=== PATIENT | male | born 1970 | race African-American/Black ===

== ENCOUNTER 2016-07-03 11:58 | Emergency (ER) | payer BC, SELFPAY ==
[2016-07-03] MEDS ORDERED: Ketorolac Tromethamine 30 MG/ML VIAL ONE (13:03)
[2016-07-03] MEDS ORDERED: Ondansetron HCl/PF 4 MG/2 ML Vial ONE (13:03)
[2016-07-03 13:32] LABS: #Basophils 0.1 thou/uL (0.0-0.2); #Lymphocytes 1.2 thou/uL (1.20-3.40); #Monocytes 0.8 thou/uL (0.11-0.59); #Neutrophils 9.8 thou/uL (1.40-6.50); %Basophils 1.2 % (0.0-1.0); %Eosinophils 0.1 % (0.0-10.0); %Lymphocytes 10.4 % (21.0-51.0); %Monocytes 6.4 % (0.0-10.0); %Neutrophils 81.9 % (42.0-75.0); Hemoglobin 16.7 g/dL (14.0-18.0); Mean Corpuscular HGB CONC 34.1 g/dL (32.0-36.0); Mean Corpuscular Hemoglobin 30.3 pg (27.0-31.0); Mean Corpuscular Volume 88.7 fl (80.0-94.0); Mean Platelet Volume 7.1 fL (7.4-10.4); Platelet Count 236 thou/uL (130-400); RBC Distribution Width 11.7 % (11.5-14.5); Red Blood Cell (RBC) Count 5.52 mill/uL (4.70-6.10); White Blood Cell (WBC) Count 11.9 thou/uL (4.8-10.8)
[2016-07-03 13:45] LABS: ALT (SGPT) 35 U/L (8-55); AST (SGOT) 20 U/L (5-34); Albumin 4.3 g/dL (3.5-5.0); Alkaline Phosphatase 70 U/L (40-150); Amylase 135 U/L (25-125); Anion Gap 15 mmol/L (10-20); BUN (Urea Nitrogen) 18 mg/dL (8.9-20.6); Bilirubin, Total 0.5 mg/dL (0.2-1.2); Calc. Creatinine Clearance 0 mL/min (70-130); Calcium 9.1 mg/dL (7.8-10.44); Carbon Dioxide 25 mmol/L (22-29); Chloride 99 mmol/L (98-107); Estimated GFR-MDRD 49; Globulin 3.6 g/dL (2.4-3.5); Glucose 196 mg/dL (70-105); Lipase 38 U/L (8-78); Potassium 4.1 mmol/L (3.5-5.1); Protein, Total 7.9 g/dL (6.0-8.3); Sodium 135 mmol/L (136-145)
--- NOTE | 2016-07-03 14:03 | CT ---
EXAM: ABDOMEN CT WITHOUT CONTRAST PELVIC CT WITHOUT CONTRAST: HISTORY: Left flank pain since yesterday. COMPARISON: None. TECHNIQUE: Abdomen and pelvic CT are performed without IV or oral contrast. Coronal reformatted images are sub mitted for interpretation. FINDINGS: ABDOMEN CT: Scarring and atelectasis in the lung bases. Heart size is normal. No pericardial effusion. Descen ding thoracic aorta and abdominal aorta have an overall normal caliber. No periaortic fat stranding . No mesenteric mass, lymphadenopathy, or free air. There are a few scattered nonspecific mesenteric lymph nodes. Limited evaluation of the alimentary canal due to lack of oral contrast. Gastric mucosa, duodenum, and small bowel loops are unremarkable. Normal-caliber air-filled appendix. Scattered fecal materi al in nondistended, nondilated colon. Occasional diverticulum. No diverticulitis. Limited evaluation of solid organs due to lack of IV contrast. No solid organ abnormality. The left intra- and extrarenal collecting systems are unremarkable. There is moderate dilatation of the left intrarenal collecting system as well as the left ureter. T here are multiple calcifications of the distal left ureter as well as the calcification in the left ureterovesicular junction/left aspect of the urinary bladder. The largest of these calcifications m easure 0.8 cm and is located in the left ureterovesicular junction/urinary bladder. PELVIC CT: No pelvic mass, lymphadenopathy, free air, or free fluid. There are no osteoblastic or osteolytic l esions. IMPRESSION: Moderate left-sided obstructive uropathy secondary to at least 3 separate calcifications. The large st calcification is along the left ureterovesical junction/left aspect of the urinary bladder. POS: JOSE DANIEL
[2016-07-03 15:04] LABS: Bilirubin Negative (Negative); Blood, Urine Trace (Negative); Clarity Clear (Clear); Glucose, Urine (Dipstick) 500 mg/dL (Negative); Leukocyte Negative (Negative); Nitrite Negative (Negative); Protein, Urine (Dipstick) Negative (Neg-Trace); Urobilinogen 0.2 mg/dL (0.2-1.0)
[2016-07-03 15:06] LABS: Bacteria/HPF Rare-Few HPF (None Seen); RBC/HPF 0-3 HPF (0-3); Squamous Epithelial 0-3 HPF (0-3); WBC/HPF 0-3 HPF (0-3)
== END 2016-07-03 15:21 | disposition short-term general hospital (02) ==
LOC: MADERS 11:58
DX: N13.2 Hydronephrosis with renal and ureteral calculous obstruction (principal); I10 Essential (primary) hypertension; E78.5 Hyperlipidemia, unspecified; E11.9 Type 2 diabetes mellitus without complications; Z79.84 Long term (current) use of oral hypoglycemic drugs; Z79.899 Other long term (current) drug therapy
CPT/HCPCS: 74176; 80053; 81001; 82150; 83690; 85025; 96374; 96375; J1885; J2270; J2405

== ENCOUNTER 2016-11-14 10:28 | Outpatient (CLI) | payer BC, OTHER ==
[2016-11-14 11:13] LABS: Hemoglobin A1c 10.2 % (4.0-6.0)
[2016-11-14 11:45] LABS: ALT (SGPT) 29 U/L (8-55); AST (SGOT) 20 U/L (5-34); Alkaline Phosphatase 69 U/L (40-150); Anion Gap 11 mmol/L (10-20); BUN (Urea Nitrogen) 13 mg/dL (8.9-20.6); Bilirubin, Total 0.8 mg/dL (0.2-1.2); Calc. Creatinine Clearance 0 mL/min (70-130); Calcium 9.2 mg/dL (7.8-10.44); Carbon Dioxide 26 mmol/L (22-29); Cardiac Risk 4.2 (Less than 4.5); Chloride 103 mmol/L (98-107); Cholesterol 175 mg/dl (< 200 Desired); Estimated GFR-MDRD 83; Globulin 3.5 g/dL (2.4-3.5); Glucose 158 mg/dL (70-105); HDL Cholesterol 42 mg/dL (>60 Neg Risk); LDL Cholesterol, Calculated 117 mg/dL; Potassium 3.4 mmol/L (3.5-5.1); Protein, Total 7.5 g/dL (6.0-8.3); Sodium 137 mmol/L (136-145); Triglycerides 81 mg/dL (Less than 150)
[2016-11-14 18:31] LABS: Creatinine, Urine 143.45 mg/dL (63-166); Microalbumin Urine 5.3 mg/dL (0.5-50.0); Microalbumin/Creat Ratio 36.9 mg/g (Less than 30)
== END 2016-11-14 10:29 | disposition home or self-care (01) ==
LOC: MADLABBHPM 10:28
PROVIDERS: ATTEND Family Medicine
DX: E11.9 Type 2 diabetes mellitus without complications (principal); I10 Essential (primary) hypertension
CPT/HCPCS: 36415; 80053; 80061; 82043; 83036

== ENCOUNTER 2018-05-07 19:32 | Emergency (ER) | payer OTHER ==
[2018-05-07] MEDS ORDERED: Aspirin Chewable 81 MG TAB ONE (20:21)
[2018-05-07 20:23] LABS: #Basophils 0.1 thou/uL (0.0-0.2); #Eosinphils 0.4 thou/uL (0.0-0.7); #Monocytes 1.1 thou/uL (0.11-0.59); #Neutrophils 4.2 thou/uL (1.40-6.50); %Basophils 0.9 % (0.0-1.0); %Eosinophils 4.7 % (0.0-10.0); %Lymphocytes 26.3 % (21.0-51.0); %Monocytes 13.7 % (0.0-10.0); %Neutrophils 54.5 % (42.0-75.0); Hemoglobin 14.6 g/dL (14.0-18.0); Mean Corpuscular HGB CONC 33.4 g/dL (32.0-36.0); Mean Corpuscular Hemoglobin 28.9 pg (27.0-31.0); Mean Corpuscular Volume 86.4 fL (78.0-98.0); Mean Platelet Volume 6.3 fL (7.4-10.4); Platelet Count 267 thou/uL (130-400); RBC Distribution Width 11.7 % (11.5-14.5); Red Blood Cell (RBC) Count 5.04 mill/uL (4.70-6.10); White Blood Cell (WBC) Count 7.7 thou/uL (4.8-10.8)
[2018-05-07 20:42] LABS: ALT (SGPT) 30 U/L (8-55); AST (SGOT) 22 U/L (5-34); Albumin 3.7 g/dL (3.5-5.0); Alkaline Phosphatase 104 U/L (40-150); Anion Gap 15 mmol/L (10-20); BUN (Urea Nitrogen) 18 mg/dL (8.9-20.6); Bilirubin, Total 0.4 mg/dL (0.2-1.2); Calc. Creatinine Clearance 0 mL/min (70-130); Calcium 9.1 mg/dL (7.8-10.44); Carbon Dioxide 27 mmol/L (22-29); Chloride 97 mmol/L (98-107); Estimated GFR-MDRD 57; Globulin 3.2 g/dL (2.4-3.5); Glucose 446 mg/dL (70-105); Potassium 3.7 mmol/L (3.5-5.1); Protein, Total 6.9 g/dL (6.0-8.3); Sodium 135 mmol/L (136-145)
[2018-05-07] MEDS ORDERED: Insulin Regular 300 UNITS/3 ML VIAL ONE (20:51)
[2018-05-07] MEDS ORDERED: Sodium Chloride 0.9% 1,000 ML ONE (20:51)
[2018-05-07] MEDS ORDERED: Benzonatate 100 MG CAP ONE (21:30)
--- NOTE | 2018-05-07 21:30 | RAD ---
PA AND LATERAL CHEST: 05/07/18 HISTORY: Intermittent chest pain. Heart size is within normal limits. Mediastinal structures appear unremarkable. The lungs are clear o f any infiltrates. There is some minimal linear atelectasis or scarring in the left base. IMPRESSION: No active intrathoracic disease. POS: HENRRY
== END 2018-05-07 22:02 | disposition home or self-care (01) ==
LOC: MADERS 19:32
DX: E11.65 Type 2 diabetes mellitus with hyperglycemia (principal); R07.9 Chest pain, unspecified; I10 Essential (primary) hypertension; E78.5 Hyperlipidemia, unspecified; Z79.899 Other long term (current) drug therapy; Z79.82 Long term (current) use of aspirin
CPT/HCPCS: 36416; 71046; 80053; 83880; 84484; 85025; 93005; 96361; 96374; J1815; J7050

== ENCOUNTER 2019-04-01 15:11 | Outpatient (CLI) | payer OTHER ==
[2019-04-01 21:37] LABS: Hemoglobin A1c 10.5 % (4.0-6.0)
[2019-04-02 20:38] LABS: Follow-up Chemistry Comp? YES; Follow-up Result - Chemistry REPORT FAXED
== END 2019-04-01 15:12 | disposition home or self-care (01) ==
LOC: MADLAB 15:11
PROVIDERS: ATTEND Family Medicine
DX: E13.42 Other specified diabetes mellitus with diabetic polyneuropathy (principal); R73.9 Hyperglycemia, unspecified
CPT/HCPCS: 36415; 83036

== ENCOUNTER 2019-05-21 09:02 | Outpatient (CLI) | payer OTHER ==
[2019-05-21 09:37] LABS: ALT (SGPT) 28 U/L (8-55); AST (SGOT) 19 U/L (5-34); Albumin 4.1 g/dL (3.5-5.0); Alkaline Phosphatase 80 U/L (40-110); Anion Gap 16 mmol/L (10-20); BUN (Urea Nitrogen) 17 mg/dL (8.4-25.7); Bilirubin, Total 0.6 mg/dL (0.2-1.2); Calc. Creatinine Clearance 0 mL/min (70-130); Calcium 9.3 mg/dL (7.8-10.44); Carbon Dioxide 26 mmol/L (22-29); Cardiac Risk 3.9 (Less than 4.5); Chloride 103 mmol/L (98-107); Cholesterol 154 mg/dl (< 200 Desired); Estimated GFR-MDRD 61; Globulin 3.6 g/dL (2.4-3.5); Glucose 158 mg/dL (70-105); HDL Cholesterol 39 mg/dL (>60 Neg Risk); LDL Cholesterol, Calculated 95 mg/dL; Potassium 3.8 mmol/L (3.5-5.1); Protein, Total 7.7 g/dL (6.0-8.3); Sodium 141 mmol/L (136-145); Triglycerides 99 mg/dL (Less than 150)
== END 2019-05-21 09:03 | disposition home or self-care (01) ==
LOC: MADLAB 09:02
PROVIDERS: ATTEND Internal Medicine Cardiovascular Disease
DX: E78.00 Pure hypercholesterolemia, unspecified (principal); I10 Essential (primary) hypertension
CPT/HCPCS: 36415; 80053; 80061

== ENCOUNTER 2020-01-23 15:07 | Emergency (ER) | payer OTHER, SELFPAY ==
[2020-01-23] MEDS ORDERED: Sodium Chloride 0.9% 1,000 ML ONE ×2 (15:36→17:16)
[2020-01-23] MEDS ORDERED: Acetaminophen 500 MG TAB ONE (15:36)
[2020-01-23 16:26] LABS: #Lymphocytes 1.4 thou/uL (1.20-3.40); #Monocytes 0.7 thou/uL (0.11-0.59); %Basophils 0.5 % (0.0-1.0); %Eosinophils 0.1 % (0.0-10.0); %Lymphocytes 26.9 % (21.0-51.0); %Monocytes 13.7 % (0.0-10.0); %Neutrophils 58.9 % (42.0-75.0); Hemoglobin 17.7 g/dL (14.0-18.0); Mean Corpuscular HGB CONC 32.6 g/dL (32.0-36.0); Mean Corpuscular Hemoglobin 28.6 pg (27.0-31.0); Mean Corpuscular Volume 87.9 fL (78.0-98.0); Mean Platelet Volume 7.7 fL (7.4-10.4); Platelet Count 178 thou/uL (130-400); RBC Distribution Width 11.4 % (11.5-14.5); Red Blood Cell (RBC) Count 6.19 mill/uL (4.70-6.10); White Blood Cell (WBC) Count 5.1 thou/uL (4.8-10.8)
--- NOTE | 2020-01-23 16:27 | RAD ---
TWO VIEWS CHEST: 01/23/20 PROVIDED CLINICAL HISTORY: Cough and fever. FINDINGS: Comparison 05/07/18. Cardiac and mediastinal silhouette is upper normal limits. Patchy right suprahilar air space disease is suspected. No pleural fluid or pneumothorax apparent. IMPRESSION: Suspected right suprahilar air space disease, which may reflect pneumonia. POS: MCKINLEY
[2020-01-23 16:42] LABS: ALT (SGPT) 35 U/L (8-55); AST (SGOT) 24 U/L (5-34); Albumin 4.2 g/dL (3.5-5.0); Alkaline Phosphatase 95 U/L (40-110); Anion Gap 19 mmol/L (10-20); BUN (Urea Nitrogen) 39 mg/dL (8.4-25.7); Bilirubin, Total 0.8 mg/dL (0.2-1.2); Calc. Creatinine Clearance 0 mL/min (70-130); Calcium 9.1 mg/dL (7.8-10.44); Carbon Dioxide 21 mmol/L (22-29); Chloride 98 mmol/L (98-107); Estimated GFR-MDRD 35; Globulin 4.2 g/dL (2.4-3.5); Glucose 331 mg/dL (70-105); Protein, Total 8.4 g/dL (6.0-8.3); Sodium 134 mmol/L (136-145)
[2020-01-23] MEDS ORDERED: Sodium Chloride 0.9% 100 ML ONE (16:50)
[2020-01-23] MEDS ORDERED: Sodium Chloride 0.9% 250 ML 250 ML ONE (16:50)
[2020-01-23] MEDS ORDERED: Azithromycin 500 MG VIAL ONE (16:50)
[2020-01-23] MEDS ORDERED: cefTRIAXone\\ROCEPHIN 2 GM VIAL ONE (16:50)
[2020-01-23] MEDS ORDERED: Insulin Regular 300 UNITS/3 ML VIAL ONE (17:08)
[2020-01-23 18:56] LABS: Anion Gap 17 mmol/L (10-20)
[2020-01-23 19:06] LABS: BUN (Urea Nitrogen) 36 mg/dL (8.4-25.7); Calc. Creatinine Clearance 0 mL/min (70-130); Calcium 7.7 mg/dL (7.8-10.44); Carbon Dioxide 17 mmol/L (22-29); Chloride 104 mmol/L (98-107); Estimated GFR-MDRD 45; Glucose 278 mg/dL (70-105); Potassium 3.6 mmol/L (3.5-5.1); Sodium 134 mmol/L (136-145)
[2020-01-23] MEDS ORDERED: Sodium Chloride 0.9% 250 ML 500 ML ONE (20:19)
== END 2020-01-23 20:38 | disposition short-term general hospital (02) ==
LOC: MADERS 15:07
DX: A41.9 Sepsis, unspecified organism (principal); R65.20 Severe sepsis without septic shock; N17.9 Acute kidney failure, unspecified; J18.9 Pneumonia, unspecified organism; E83.51 Hypocalcemia; E11.65 Type 2 diabetes mellitus with hyperglycemia; I10 Essential (primary) hypertension; Z79.82 Long term (current) use of aspirin; Z79.899 Other long term (current) drug therapy
CPT/HCPCS: 36416; 71046; 80053; 83605; 85025; 87040; 87804; 96365; 96367; 96375; J0456; J0696; J1815; J3370; J3490; J7050

== ENCOUNTER 2020-12-04 09:50 | Emergency (ER) | payer OTHER ==
[2020-12-04] MEDS ORDERED: predniSONE 20 MG TAB ONE (10:12)
[2020-12-04 20:18] LABS: SARS-CoV-2 PCR by NAA Not Detected (NotDetected)
== END 2020-12-04 10:40 | disposition home or self-care (01) ==
LOC: MADERS 09:50
DX: J06.9 Acute upper respiratory infection, unspecified (principal); I10 Essential (primary) hypertension; E11.9 Type 2 diabetes mellitus without complications; E78.5 Hyperlipidemia, unspecified; Z20.822 Contact with and (suspected) exposure to COVID-19
CPT/HCPCS: J7512; J7620; U0003; U0005

== ENCOUNTER 2023-08-17 19:42 | Emergency (ER) | payer SELFPAY ==
[2023-08-17] MEDS ORDERED: Acetaminophen 500 MG TAB ONE (20:30)
[2023-08-17] MEDS ORDERED: Ibuprofen 800 MG TAB ONE (20:30)
[2023-08-17] MEDS ORDERED: Lidocaine 4% Patch ONE (20:30)
== END 2023-08-17 21:44 | disposition home or self-care (01) ==
LOC: MADERS 19:42
DX: M25.512 Pain in left shoulder (principal); T84.032A Mechanical loosening of internal right knee prosthetic joint, initial encounter; E78.5 Hyperlipidemia, unspecified; E11.9 Type 2 diabetes mellitus without complications; I10 Essential (primary) hypertension; Z79.82 Long term (current) use of aspirin; Z79.899 Other long term (current) drug therapy; V86.65XA Passenger of 3- or 4- wheeled all-terrain vehicle (ATV) injured in nontraffic accident, initial encounter